=== PATIENT | female | born 1960 | race Caucasian/White ===

== ENCOUNTER → 2018-08-07 | Outpatient (CLI) | payer OTHER ==
[~2018-08-07] MED LIST: ACE325 PO; CALC-547 PO; IBU200 PO; KETO5DRO50 OP; MULT-820 PO; PROG200C7 PO; TOBROD OP; [UNRECOGNIZED DRUG - CODE] MC; [UNRECOGNIZED DRUG - CODE] PO; [UNRECOGNIZED DRUG - CODE] PO
--- NOTE | 2018-08-07 10:42 | RADIOLOGY IMAGING REPORT ---
FACILITY: [facility] PATIENT NAME: Juju Miner : 1960 MR: [id number] V: [id number] EXAM DATE: ORDERING PHYSICIAN: CHELSY PUCKETT TECHNOLOGIST: Location: [facility] Patient: Juju Miner : 1960 Visit/Account:[id number] Date of Sevice: 08/07/2018 GALLBLADDER HISTORY: Right upper quadrant pain right lower quadrant pain and mid abdomen pain COMPARISON: None. FINDINGS: Gallbladder: Unremarkable; no stones or sludge. Liver: There is a 1 cm cyst in the lateral segment left lobe of the liver Common duct: Normal, 2.9 mm diameter. Pancreas: Partially obscured by bowel, visualized aspects unremarkable. Right kidney: Right kidney appears unremarkable measuring 10.35 cm in length Upper abdominal aorta and IVC: Patent. Ascites: None visualized. IMPRESSION: 1 cm cyst left lobe of the liver otherwise unremarkable right upper quadrant ultrasound Report Dictated By: Rosa Beckman MD at 08/07/2018 10:36 AM Report E-Signed By: Rosa Beckman MD at 08/07/2018 10:38 AM WSN:[email or web address]
--- NOTE | 2018-08-07 13:47 | RADIOLOGY IMAGING REPORT ---
FACILITY: [facility] PATIENT NAME: Juju Miner : 1960 MR: [id number] V: [id number] EXAM DATE: ORDERING PHYSICIAN: CHELSY PUCKETT TECHNOLOGIST: Location: [facility] Patient: Juju Miner : 1960 Visit/Account:[id number] Date of Sevice: 08/07/2018 PELVIC HISTORY: Lower abdomen pain TECHNIQUE: Transvaginal and transabdominal ultrasound pelvis. COMPARISON: None. FINDINGS: Uterus: Surgically absent Ovaries: Right - 3.4 x 2.7 x 1.9 cm there is a two cm cyst in the right ovary Left - 2.4 x 1.5 x 1 cm Blood flow is documented in each ovary by duplex Doppler ultrasound. Adnexa: Grossly unremarkable. Free pelvic fluid: None. IMPRESSION: Postsurgical changes from a hysterectomy. 2 cm cyst incidentally noted in the right ovary Report Dictated By: Rosa Beckman MD at 08/07/2018 1:40 PM Report E-Signed By: Rosa Beckman MD at 08/07/2018 1:43 PM WSN:[email or web address]
== END ==
LOC: US 01:15
PROVIDERS: ATTEND Nurse Practitioner Family
DX: K76.89 Other specified diseases of liver (principal); N83.201 Unspecified ovarian cyst, right side; Z90.710 Acquired absence of both cervix and uterus
CPT/HCPCS: 76705; 76856

== ENCOUNTER 2018-10-02 03:02 | Day surgery (SDC) | payer OTHER ==
[2018-10-02] VITALS (8 sets, daily range): BP systolic 104–139; BP diastolic 72–86
[~2018-10-02] VITALS: Ht 162.6 cm; Wt 61.7 kg
[~2018-10-02 03:02] MED LIST changes: +CELE-1 PO; +METR45GE4 TP; +[UNRECOGNIZED DRUG - CODE] TOP
[2018-10-02] MEDS ORDERED: LIDOCAINE MPF 1% 5 ML VIAL ONE (08:21)
[2018-10-02] MEDS ORDERED: PROPOFOL EMUL(*) 10MG/ML 20 ML 60 ML ONE (08:21)
[2018-10-02] MEDS ORDERED: LIDOCAINE/SOD BICARB 8.4% SYR ID ONE (13:30)
[2018-10-02] MEDS ORDERED: NORMOSOL R SOLN(*) 1000 ML BAG 1,000 ML IV PRN (13:30)
== END 2018-10-02 17:30 | disposition home or self-care (01) ==
LOC: OR 03:02
PROVIDERS: ATTEND Internal Medicine Gastroenterology
DX: K57.30 Diverticulosis of large intestine without perforation or abscess without bleeding (principal); K64.9 Unspecified hemorrhoids; K62.1 Rectal polyp; K21.9 Gastro-esophageal reflux disease without esophagitis; K44.9 Diaphragmatic hernia without obstruction or gangrene; K29.70 Gastritis, unspecified, without bleeding
CPT/HCPCS: 00813; 43239; 43248; 43250; 45380; 45385; J2001; J2704; 88305; 88313; 88344

== ENCOUNTER → 2019-05-15 | Outpatient (CLI) | payer OTHER | LOC: RAD 01:21 | PROVIDERS: ATTEND Nurse Practitioner Family | DX: R53.83 Other fatigue (principal); E78.00 Pure hypercholesterolemia, unspecified | CPT/HCPCS: 93017; 93350 ==